=== PATIENT | male | born 1980 | race Hispanic/Latino ===

== ENCOUNTER 2017-10-11 18:53 | Emergency (ER) | payer SELFPAY ==
[2017-10-11] MEDS ORDERED: NACL 0.9% 1000 ML 1,000 ML IV ONE (20:09)
[2017-10-11] MEDS ORDERED: ZOFRAN IV ONE (20:09)
[2017-10-11] MEDS ORDERED: MORPHINE IV ONE (20:11)
[2017-10-11 20:24] LABS: Basophils # (Auto) 0.1 K/mm3 (0.0-0.1); Basophils % (Auto) 0.3 % (0.0-1.8); Eosinophils % (Auto) 0.2 % (0.0-4.3); Hematocrit 46.7 % (35.5-45.6); Hemoglobin 16.2 gm/dl (11.8-15.2); Lymphocytes # (Auto) 1.5 K/mm3 (1.2-5.4); Lymphocytes % (Auto) 8.2 % (13.4-35.0); Mean Corpuscular HGB Conc 35 % (32-34); Mean Corpuscular Hemoglobin 31 pg (28-32); Mean Corpuscular Volume 89 fl (84-94); Monocytes % (Auto) 5.4 % (0.0-7.3); Platelet Count 101 K/mm3 (140-440); Red Blood Count 5.25 M/mm3 (3.65-5.03); Red Cell Distribution Width 13.3 % (13.2-15.2)
[2017-10-11 20:37] LABS: Alanine Aminotransferase 34 units/L (7-56); Albumin 4.6 g/dL (3.9-5); BUN/Creatinine Ratio 16; Blood Urea Nitrogen 16 mg/dL (9-20); Calcium 9.5 mg/dL (8.4-10.2); Hemolysis Index 4; Lipase 18 units/L (13-60)
--- NOTE | 2017-10-11 21:16 | Cat Scan Report ---
FINAL REPORT PROCEDURE: CT ABDOMEN PELVIS WO CON TECHNIQUE: Computerized axial tomography of the abdomen and pelvis was performed without intravenous contrast. This study is performed without intravascular contrast material and its sensitivity for abdominal and pelvic pathology, including neoplasms, inflammation, abscess, free fluid, thrombosis, arterial dissection and infarction, is reduced compared with a contrast enhanced study. HISTORY: Acute right flank pain COMPARISON: No prior studies are available for comparison. FINDINGS: Lower Lung hernandez: There is minimal dependent atelectasis. Lung bases otherwise are clear. Upper Abdomen: The liver, the gallbladder, the adrenal glands, the pancreas are unremarkable. The spleen is mildly enlarged measuring 14.5 centimeters otherwise is unremarkable. Kidneys, Ureters and Urinary bladder: There is a 3.5 x 3.0 millimeter calculus at the right ureterovesical junction causing minimal right-sided hydronephrosis. No other ureteral calculi are seen on the right. No renal calculi are seen on the right. There is a nonobstructing 2.5 millimeter calculus in the midportion of the left kidney. The left kidney and left ureter otherwise are unremarkable. Retroperitoneum: Abdominal aorta appears normal. Nonspecific subcentimeter lymph nodes are seen in the retroperitoneum. No pathologically enlarged lymph nodes are identified. Bowel: Bowel loops are unremarkable. No evidence of bowel obstruction or ascites. There is no free intraperitoneal gas. Normal-appearing appendix is seen in the right lower quadrant. Reproductive organs: Prostate gland is unremarkable. Other: No acute bony abnormalities are seen IMPRESSION: Mild right-sided hydronephrosis secondary to a small calculus at the right ureterovesical junction as described. There is also a small nonobstructing calculus in the left kidney..
[2017-10-11] MEDS ORDERED: TORADOL ONE (21:31)
[2017-10-11 21:32] LABS: Bilirubin,Urine NEG (Negative); Blood,Urine NEG (Negative); Color,Urine Yellow (Yellow); Mucus,Urine 1+ /HPF; Urobilinogen,Urine < 2.0 mg/dL (<2.0)
[2017-10-11] MEDS ORDERED: TORADOL IV ONE (21:36)
[2017-10-11] MEDS ORDERED: ROCEPHIN/NS 1 GM/50 ML 1 GM/50 ML BAG IV ONE (22:09)
[2017-10-11] MEDS ORDERED: cefTRIAXone 1 GM in NACL 0.9% 20 ML IV ONE (22:15)
--- NOTE | 2017-10-11 22:21 | Emergency Department Report ---
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 denies: fever, chills, constipation, dysuria, hematemesis, hematochezia, melena, hematuria, anorexia, syncope - Related Data Previous Rx's Medication Instructions Recorded Last Taken Type HYDROcodone/APAP 5-325 [[place] 1 each PO Q6HR PRN #10 tablet 10/11/17 Unknown Rx 5/325] Promethazine [Phenergan TAB] 25 mg PO Q6HR PRN #10 tab 10/11/17 Unknown Rx Sulfamethoxazole/Trimethoprim 1 each PO BID #14 tablet 10/11/17 Unknown Rx [Bactrim DS TAB] Tamsulosin HCl [Flomax] 0.4 mg PO DAILY #5 cap.er.24h 10/11/17 Unknown Rx Allergies Allergy/AdvReac Type Severity Reaction Status Date / Time No Known Allergies Allergy Verified 10/11/17 21:34 ED Review of Systems ROS: Stated complaint: ABDOMINAL PAIN Other details as noted in HPI Comment: All other systems reviewed and negative Constitutional: diaphoresis. denies: fever, malaise Eyes: denies: eye discharge, vision change ENT: denies: dental pain, hearing loss, epistaxis Respiratory: denies: cough, orthopnea, shortness of breath, SOB with exertion, SOB at rest, stridor Cardiovascular: denies: chest pain, palpitations, dyspnea on exertion, orthopnea , edema, syncope, paroxysmal nocturnal dyspnea Gastrointestinal: abdominal pain, nausea, vomiting. denies: diarrhea, constipation, hematemesis, melena, hematochezia Neurological: denies: numbness, paresthesias, confusion Psychiatric: denies: auditory hallucinations, visual hallucinations, homicidal thoughts Hematological/Lymphatic: denies: easy bruising, swollen glands ED Past Medical Hx - Past Medical History Previous Medical History?: No - Surgical History Past Surgical History?: No - Social History Smoking Status: Never Smoker - Medications Home Medications: Home Medications Medication Instructions Recorded Confirmed Last Taken Type HYDROcodone/APAP 5-325 [[place] 1 each PO Q6HR PRN #10 tablet 10/11/17 Unknown Rx 5/325] Promethazine [Phenergan TAB] 25 mg PO Q6HR PRN #10 tab 10/11/17 Unknown Rx Sulfamethoxazole/Trimethoprim 1 each PO BID #14 tablet 10/11/17 Unknown Rx [Bactrim DS TAB] Tamsulosin HCl [Flomax] 0.4 mg PO DAILY #5 cap.er.24h 10/11/17 Unknown Rx ED Physical Exam - General Limitations: No Limitations General appearance: alert, anxious, other (afebrile) - Head Head exam: Present: atraumatic, normocephalic - Eye Eye exam: Present: normal appearance, PERRL, EOMI - ENT ENT exam: Present: normal exam, normal orophraynx - Neck Neck exam: Present: normal inspection. Absent: tenderness, meningismus - Respiratory Respiratory exam: Present: normal lung sounds bilaterally. Absent: respiratory distress, wheezes, rales, rhonchi, stridor, chest wall tenderness, accessory muscle use, decreased breath sounds, prolonged expiratory - Cardiovascular Cardiovascular Exam: Present: regular rate, normal rhythm - GI/Abdominal GI/Abdominal exam: Present: soft, pulsatile mass, other (no McBurney point tenderness). Absent: distended, tenderness, guarding, rebound, rigid, mass - Extremities Exam Extremities exam: Present: normal inspection, normal capillary refill. Absent: pedal edema, joint swelling, calf tenderness - Back Exam Back exam: Present: normal inspection, CVA tenderness (R). Absent: CVA tenderness (L), muscle spasm, paraspinal tenderness, vertebral tenderness, rash noted - Neurological Exam Neurological exam: Present: alert, oriented X3, CN II-XII intact. Absent: motor sensory deficit - Psychiatric Psychiatric exam: Present: anxious - Skin Skin exam: Present: warm, normal color. Absent: rash ED Course Vital Signs 10/11/17 10/11/17 10/11/17 19:57 20:38 21:08 Temperature 97.5 F L Pulse Rate 84 Respiratory 16 20 20 Rate Blood Pressure 133/94 O2 Sat by Pulse 95 Oximetry ED Medical Decision Making - Lab Data Result diagrams: 10/11/17 20:06 10/11/17 20:06 - Radiology Data Radiology results: report reviewed - Medical Decision Making Patient 3 mm UVJ stone with mild hydro-, symptoms improved in ED does have whites and reds in the urine leukocytosis with a left shift likely stress related patient will be given antibiotics he'll be discharged with pain medicine as well as Flomax as well as nausea medicine and antibiotic use to see his regular doctor tomorrow he is to return alarming symptoms appendix was normal per the radiologist patient is tolerating by mouth stable vital signs no acute abdomen at this time Critical care attestation.: If time is entered above; I have spent that time in minutes in the direct care of this critically ill patient, excluding procedure time. ED Disposition Clinical Impression: Ureterolithiasis Disposition: DC- TO HOME OR SELFCARE Is pt being admited?: No Condition: Stable Instructions: Kidney Stones (ED), How to Strain Your Urine (ED) Additional Instructions: See her doctor tomorrow or the urologist return if vomiting symptoms such as worse pain and intractable nausea vomiting fever or other problems Prescriptions: HYDROcodone/APAP 5-325 [[place] 5/325] 1 each PO Q6HR PRN #10 tablet PRN Reason: Pain Promethazine [Phenergan TAB] 25 mg PO Q6HR PRN #10 tab PRN Reason: Nausea Sulfamethoxazole/Trimethoprim [Bactrim DS TAB] 1 each PO BID #14 tablet Tamsulosin HCl [Flomax] 0.4 mg PO DAILY #5 cap.er.24h Referrals: PRIMARY CARE, [Primary Care Provider] - 3-5 Days Time of Disposition: 22:22
[2017-10-11 22:29] VITALS: BP 129/79
== END 2017-10-11 22:58 | disposition home or self-care (01) ==
LOC: ED 18:53
DX: N20.1 Calculus of ureter (principal)
CPT/HCPCS: 36415; 74176; 80053; 81001; 83690; 85025; 96361; 96365; 96375; 99284; J0696; J1885; J2270; J2405; J7030